=== PATIENT | female | born 1935 | race Caucasian/White ===

== ENCOUNTER 2016-08-10 10:49 | Outpatient (RCR) | payer MEDICARE, OTHER ==
[~2016-08-10 10:49] MED LIST: KEFL500C7 PO; LORT5TAB PO; NIAS1TAB PO; PARO-39 PO; SILV-4 TOP; SYNT75TA PO
--- NOTE | 2016-09-07 09:33 | RADONC ---
RADIATION ONCOLOGY PROGRESS NOTE DATE: 09/06/2016 Ms. Garcia is presently at a dose of 5580 centigrade to her left chest wall surgical scar and is tolerating treatments quite well at this point with no significant difficulties related to her radiation therapy other than some skin discomfort. REVIEW OF SYSTEMS: The patient's review of systems is positive for some skin tenderness, but is otherwise noncontributory. She denies nausea, vomiting, fevers, chills, night sweats, diplopia, headaches, anxiety or depression, anorexia, weight loss, visual disturbances, chest pain, urinary or bowel difficulties, bone pain, or neurological problems. PHYSICAL EXAMINATION: On physical exa, the patient's skin is in generally good condition with brisk erythema and tanning, but no evidence of moist desquamation. The remainder of her physical exam remains unchanged. Ms. Garcia is tolerating treatments quite well and radiation will continue as scheduled.
== END 2016-09-07 ==
LOC: M ONCR 10:49
PROVIDERS: ATTEND Radiology Radiation Oncology
DX: C50.112 Malignant neoplasm of central portion of left female breast (principal)

== ENCOUNTER 2016-09-08 11:00 | Outpatient (RCR) | payer MEDICARE, OTHER ==
--- NOTE | 2016-09-08 15:33 | RADONC ---
RADIATION ONCOLOGY TREATMENT SUMMARY: DATE: 09/08/2016 CHART NO.: [id number] DIAGNOSIS: Right breast cancer. STAGE: III B, T4N1M0 DIAGNOSIS: Left breast cancer. STAGE: II B, T2N1M0 ECOG PERFORMANCE STATUS: 1 Ms. Garcia is a very pleasant 80-year-old white female with the diagnosis of a stage III B, T2N1M0 right-sided breast carcinoma and a stage IIB, T2N1M0 left-sided breast carcinoma who presented to us status post left simple mastectomy and sentinel lymph node sampling as well as right modified radical mastectomy and axillary dissection for consideration of postoperative radiation therapy to her left chest wall in order to increase the likelihood of achieving local control We treated the patient to her left chest wall for a total dose of 5400 cGy delivered in 28 fractions of 180 cGy each over 55 elapsed days from 07/08/2016 through 09/01/2016. The patient's left chest wall was treated on a linear accelerator by medial and lateral tangential godinez utilizing a 6 MV photon beam via 3D conformal technique. One-half centimeter tissue equivalent bolus was placed over the field. Following completion of 540 cGy to the entire left chest wall, the scar site was boosted for an additional 900 cGy delivered in five fractions of 180 cGy each from 09/02/2016 through 09/08/2016. The scar site was boosted on a liner accelerator utilizing a 9 MEV electron beam prescribed to the 90% isodose line via and en face technique. This brought the primary scar area to a total of 5940 cGy delivered in 33 fractions over 62 elapsed days from 07/08/2016 through 09/08/2016. Mrs. Garcia tolerated her treatments quite well and was able to complete radiation as prescribed without interruption. The patient is scheduled to see me again in 1 month for further followup. She will also continue to be followed by her other physicians in the meantime. cc: *Aj Solorio MD
== END 2016-10-05 ==
LOC: M ONCR 11:00
PROVIDERS: ATTEND Radiology Radiation Oncology
DX: C50.111 Malignant neoplasm of central portion of right female breast (principal); C50.112 Malignant neoplasm of central portion of left female breast

== ENCOUNTER → 2016-09-21 | Outpatient (REF) | payer MEDICARE, OTHER | END | disposition home or self-care (01) | LOC: M LAB REF 16:18 | PROVIDERS: ATTEND Internal Medicine Medical Oncology | DX: C50.919 Malignant neoplasm of unspecified site of unspecified female breast (principal); Z92.3 Personal history of irradiation; Z79.811 Long term (current) use of aromatase inhibitors; N95.0 Postmenopausal bleeding; M85.80 Other specified disorders of bone density and structure, unspecified site ==

== ENCOUNTER → 2016-10-13 | Outpatient (CLI) | payer MEDICARE, OTHER ==
--- NOTE | 2016-10-14 11:23 | RADONC ---
RADIATION ONCOLOGY FOLLOWUP NOTE DATE: 10/13/2016 CHART NUMBER: [id number]. DIAGNOSIS: Right breast cancer. STAGE: IIIB, T4N1M0. DIAGNOSIS: Left breast cancer. STAGE: IIB, T2N1M0. ECOG PERFORMANCE STATUS: 0 FOLLOWUP NOTE: Ms. Garcia is a very pleasant 80-year-old white female with the diagnosis of a stage IIIB, T2N1M0 right-sided breast carcinoma and a stage IIB, T2N1M0 left sided breast carcinoma who is presenting to us today for routine followup visit 1 month post completion of external beam radiation therapy to her left chest wall. The patient presents today reporting that she is doing quite well with no complaints at this time related to her radiation therapy or disease. She has no chest wall or bone pain. REVIEW OF SYSTEMS: The patient's review of systems is noncontributory. She denies nausea, vomiting, fevers, chills, night sweats, diplopia, headaches, anxiety or depression, anorexia, weight loss, visual disturbances, chest pain, urinary or bowel difficulties, bone pain, or neurological problems. PHYSICAL EXAMINATION: The patient is a well-developed, well-nourished white female in no acute distress. HEENT exam is normocephalic, atraumatic. Extraocular movements are intact. There is no palpable cervical, supraclavicular, infraclavicular, axillary, or inguinal lymphadenopathy present. Lungs are clear to auscultation and percussion. Heart has a regular rate and rhythm. Abdomen is benign with no hepatosplenomegaly, masses, or tenderness. Chest wall examination reveals bilateral mastectomy scars present. There is no evidence of nodularity, ulceration, residual or recurrent disease. There is some radiation tanning present over her left chest wall, but overall the skin is in good condition with no evidence of moist or dry desquamation. Skeletal examination reveals no tenderness to pressure or percussion of the bony skeleton. Extremities reveal no clubbing, cyanosis, or edema. Neurologic exam is grossly intact, as is the remainder of the physical examination. ASSESSMENT: The patient is clinically stable at this time. At the patient's request, she has requested not to be followed in our office but will be followed by her medical oncologist, Dr. Blandon. cc: Stacey Blandon MD *MARÍA Robertson
== END ==
LOC: M ONCR 09:15
PROVIDERS: ATTEND Radiology Radiation Oncology
DX: C50.112 Malignant neoplasm of central portion of left female breast (principal); C50.111 Malignant neoplasm of central portion of right female breast

== ENCOUNTER → 2017-07-13 | Outpatient (CLI) | payer MEDICARE, OTHER ==
[~2017-07-13] MED LIST changes: +KEFL500C17 PO; -KEFL500C7 PO; -PARO-39 PO; +PARO20TA4 PO
--- NOTE | 2017-07-15 09:20 | DEXA ---
AP SPINE L1 - L4 1.149 -0.4 1.5 LT FEMUR TOTAL 0.731 -2.2 -0.2 RT FEMUR TOTAL 0.759 -2.0 0.0 TOTAL BODY TOTAL OTHER COMMENTS: Normal bone densitometry of the spine. There is low bone density of the left hip. There is low bone density of the right hip. There is degenerative change in the spine which may artificially elevate the BMD. The increased density of the spine does represent a significant change since 07/2016. The increased density of the left hip does represent a significant change since 07/19/2016. The increased density of the right hip does represent a significant change since 07/19/2016. The density of the spine is increased 3.0% since the initial exam on 03/24/2001. The spine density has increased 4.1% since the most recent exam on 07/19/2016. The density of the left hip has decreased 14.2% since the initial exam on 2000. The density of the left hip has increased 2.4% since the most recent exam on 07/2016. The density of the right hip has decreased 12.6% since the initial exam on 03/24. The density of the right hip has increased 5.0% since the most recent exam on . FOLLOW-UP: Recommendation for the next bone density exam: 1 year. SHRAVAN
== END ==
LOC: M WHC 10:28
PROVIDERS: ATTEND Nurse Practitioner Family
DX: M85.9 Disorder of bone density and structure, unspecified (principal); Z79.811 Long term (current) use of aromatase inhibitors

== ENCOUNTER → 2017-09-27 | Outpatient (CLI) | payer MEDICARE, OTHER ==
[2017-09-27 14:27] LABS: TOTAL 25(OH) VITAMIN D 32.9 NG/ML (30.0-100.0)
[2017-09-27 14:33] LABS: BASO # 0.1 10^3/uL (0.0-0.2); BASO % 1.4 % (0.0-1.0); EOS # 0.3 10^3/uL (0.0-0.50); EOS % 4.4 % (0.0-3.0); HEMATOCRIT 43.2 % (36.0-47.0); IMMATURE GRANULOCYTE % 0.3 % (0-3.0); LYMPH % 33.8 % (24.0-44.0); MEAN CORPUSCULAR HEMOGLOBIN 29.2 pg (27.0-33.0); MEAN CORPUSCULAR HGB CONC 32.4 g/dl (32.0-36.5); MONO # 0.5 10^3/uL (0.0-0.8); MONO % 9.1 % (0.0-5.0); PLATELET COUNT, AUTOMATED 257 10^3/uL (150-450); RED CELL DISTRIBUTION WIDTH 12.3 % (11.5-14.5); WHITE BLOOD COUNT 5.9 10^3/uL (4.0-10.0)
[2017-09-27 14:52] LABS: ALBUMIN 3.8 GM/DL (3.2-5.2); ALBUMIN/GLOBULIN RATIO 1.12 (1.00-1.93); ALKALINE PHOSPHATASE 63 U/L (45-117); ALT/SGPT 58 U/L (12-78); ANION GAP 5 MEQ/L (8-16); AST/SGOT 49 U/L (7-37); BILIRUBIN,TOTAL 0.7 MG/DL (0.2-1.0); BLOOD UREA NITROGEN 16 MG/DL (7-18); CALCIUM LEVEL 9.2 MG/DL (8.8-10.2); CARBON DIOXIDE LEVEL 29 MEQ/L (21-32); CHLORIDE LEVEL 107 MEQ/L (98-107); CREATININE FOR GFR 0.92 MG/DL (0.55-1.30); FREE T3 3.1 PG/ML (2.2-4.0); FREE T4 1.05 NG/DL (0.76-1.46); GLOMERULAR FILTRATION RATE > 60.0 (>32); GLUCOSE, FASTING 111 MG/DL (70-100); POTASSIUM SERUM 4.6 MEQ/L (3.5-5.1); SODIUM LEVEL 141 MEQ/L (136-145); THYROID STIMULATING HORMONE 0.488 uIU/ML (0.358-3.740); TOTAL PROTEIN 7.2 GM/DL (6.4-8.2)
== END ==
LOC: M SMT 10:43
DX: Z79.899 Other long term (current) drug therapy (principal); E03.9 Hypothyroidism, unspecified
CPT/HCPCS: 84443

== ENCOUNTER → 2018-10-16 | Outpatient (CLI) | payer MEDICARE, OTHER ==
[~2018-10-16] MED LIST changes: +FOSA70TA PO; +LETR2.5T2 PO; -NIAS1TAB PO; +NIAS500T23 PO
[2018-10-16 13:49] LABS: ALBUMIN 3.9 GM/DL (3.2-5.2); ALT/SGPT 63 U/L (12-78); BILIRUBIN,TOTAL 0.9 MG/DL (0.2-1.0); BLOOD UREA NITROGEN 11 MG/DL (7-18); CALCIUM LEVEL 9.4 MG/DL (8.8-10.2); CARBON DIOXIDE LEVEL 30 MEQ/L (21-32); CHLORIDE LEVEL 105 MEQ/L (98-107); CREATININE FOR GFR 0.91 MG/DL (0.55-1.30); FREE T3 2.7 PG/ML (2.2-4.0); FREE T4 1.14 NG/DL (0.76-1.46); GLOMERULAR FILTRATION RATE > 60.0 (>32); GLUCOSE, FASTING 107 MG/DL (70-100); POTASSIUM SERUM 4.9 MEQ/L (3.5-5.1); SODIUM LEVEL 140 MEQ/L (136-145); TOTAL 25(OH) VITAMIN D 28.6 NG/ML (30.0-100.0); TOTAL PROTEIN 7.2 GM/DL (6.4-8.2)
== END ==
LOC: M SMT 10:11
PROVIDERS: ATTEND Family Medicine
DX: Z51.81 Encounter for therapeutic drug level monitoring (principal); Z79.899 Other long term (current) drug therapy; M85.80 Other specified disorders of bone density and structure, unspecified site; E03.9 Hypothyroidism, unspecified

== ENCOUNTER → 2019-09-18 | Outpatient (CLI) | payer MEDICARE, OTHER ==
[~2019-09-18] MED LIST changes: +ALEN35TA6 PO
== END ==
LOC: M WHC 11:22
PROVIDERS: ATTEND Internal Medicine Hematology & Oncology
DX: M81.0 Age-related osteoporosis without current pathological fracture (principal)

== ENCOUNTER → 2020-04-28 | Outpatient (CLI) | payer MEDICARE, OTHER ==
[~2020-04-28] MED LIST changes: +ALEN35TA54 PO; -ALEN35TA6 PO
--- NOTE | 2020-05-08 11:49 | REP ---
LEFT HIP SERIES HISTORY: Left hip pain. TECHNIQUE: Two views of the left hip are performed. FINDINGS: There is no acute fracture or dislocation. There are moderate arthritic changes at the left hip joint with moderate joint space narrowing, subchondral sclerosis, and spurring. There is also mild subchondral cystic change on both sides of the joint. IMPRESSION: Moderate arthritic changes left hip joint. MTDD
== END ==
LOC: M LAB 10:06 → M RAD 10:06
PROVIDERS: ATTEND Internal Medicine Medical Oncology
DX: M16.12 Unilateral primary osteoarthritis, left hip (principal)

== ENCOUNTER → 2021-03-13 | Outpatient (CLI) | payer MEDICARE, OTHER ==
[~2021-03-13] MED LIST changes: -ALEN35TA54 PO; +ALEN35TA56 PO; +CALC-190 PO
== END ==
LOC: M RAD 08:38
PROVIDERS: ATTEND Internal Medicine Medical Oncology
DX: R94.5 Abnormal results of liver function studies (principal)

== ENCOUNTER → 2021-09-18 | Outpatient (CLI) | payer MEDICARE, OTHER ==
[~2021-09-18] MED LIST changes: -CALC-190 PO
== END ==
LOC: M WHC 12:49
PROVIDERS: ATTEND Internal Medicine Medical Oncology
DX: M85.851 Other specified disorders of bone density and structure, right thigh (principal); M85.852 Other specified disorders of bone density and structure, left thigh

== ENCOUNTER → 2022-05-14 | Outpatient (CLI) | payer MEDICARE, OTHER ==
[~2022-05-14] MED LIST changes: +ALEN70TA87 PO; +CALC-190 PO; -FOSA70TA PO
[2022-05-14 13:38] LABS: BASO % 0.7 % (0.0-1.0); EOS # 0.1 10^3/uL (0.0-0.5); EOS % 2.2 % (0.0-3.0); HEMATOCRIT 40.9 % (36.0-47.0); HEMOGLOBIN 12.9 g/dl (12.0-15.5); LYMPH % 36.6 % (24.0-44.0); MEAN CORPUSCULAR HEMOGLOBIN 29.3 pg (27.0-33.0); MEAN CORPUSCULAR HGB CONC 31.5 g/dl (32.0-36.5); MONO # 0.7 10^3/uL (0.0-0.8); NEUTROPHILS # 2.6 10^3/uL (1.5-8.5); NEUTROPHILS % 47.3 % (36.0-66.0); PLATELET COUNT, AUTOMATED 272 10^3/uL (150-450); WHITE BLOOD COUNT 5.6 10^3/uL (4.0-10.0)
[2022-05-14 14:45] LABS: ALBUMIN 3.7 GM/DL (3.2-5.2); BILIRUBIN,TOTAL 0.9 MG/DL (0.2-1.0); CALCIUM LEVEL 9.8 MG/DL (8.8-10.2); CHOLESTEROL RISK RATIO 5.868 (<5); CREATININE FOR GFR 1.01 MG/DL (0.55-1.30); FREE T4 1.05 NG/DL (0.76-1.46); GLOMERULAR FILTRATION RATE 55.6 (>32); POTASSIUM SERUM 4.4 MEQ/L (3.5-5.1); THYROID STIMULATING HORMONE 1.82 uIU/ML (0.358-3.740); TOTAL PROTEIN 6.9 GM/DL (6.4-8.2)
[2022-05-14 17:12] LABS: FREE T3 2.6 PG/ML (2.2-4.0)
== END ==
LOC: M WUC 09:39
PROVIDERS: ATTEND Family Medicine
DX: Z00.00 Encounter for general adult medical examination without abnormal findings (principal); E03.9 Hypothyroidism, unspecified; M85.80 Other specified disorders of bone density and structure, unspecified site

== ENCOUNTER → 2022-11-03 | Outpatient (CLI) | payer MEDICARE, OTHER ==
[2022-11-03 10:03] LABS: ALBUMIN 3.5 G/DL (3.2-5.2); CALCIUM LEVEL 9.4 MG/DL (8.3-10.6); CHOLESTEROL RISK RATIO 3.9 (<5); CREATININE FOR GFR 0.95 MG/DL (0.55-1.30); GLOMERULAR FILTRATION RATE 59.5 (>32); HEMOGLOBIN A1c 5.8 % (4.0-6.0); LDL CHOLESTEROL 70.4 MG/DL (<100); POTASSIUM SERUM 4.8 MMOL/L (3.5-5.1); TOTAL PROTEIN 6.3 G/DL (5.7-8.2)
== END ==
LOC: M WUC 08:20
PROVIDERS: ATTEND Family Medicine
DX: E78.5 Hyperlipidemia, unspecified (principal); R73.01 Impaired fasting glucose

== ENCOUNTER → 2022-12-14 | Outpatient (CLI) | payer MEDICARE, OTHER ==
[2022-12-14 15:40] LABS: BASO % 0.4 % (0.0-1.0); EOS # 0.2 10^3/uL (0.0-0.5); EOS % 2.3 % (0.0-3.0); HEMATOCRIT 44.6 % (36.0-47.0); HEMOGLOBIN 14.1 g/dl (12.0-15.5); LYMPH # 2.4 10^3/uL (1.5-5.0); LYMPH % 32.4 % (24.0-44.0); MEAN CORPUSCULAR HEMOGLOBIN 28.8 pg (27.0-33.0); MEAN CORPUSCULAR HGB CONC 31.6 g/dl (32.0-36.5); MONO # 1.5 10^3/uL (0.0-0.8); MONO % 20.4 % (2.0-8.0); NEUTROPHILS # 3.2 10^3/uL (1.5-8.5); NEUTROPHILS % 44.2 % (36.0-66.0); PLATELET COUNT, AUTOMATED 206 10^3/uL (150-450); WHITE BLOOD COUNT 7.3 10^3/uL (4.0-10.0)
[2022-12-14 15:42] LABS: ALBUMIN 3.5 G/DL (3.2-5.2); BILIRUBIN,TOTAL 0.7 MG/DL (0.3-1.2); CALCIUM LEVEL 9.5 MG/DL (8.3-10.6); CREATININE FOR GFR 1.15 MG/DL (0.55-1.30); GLOMERULAR FILTRATION RATE 47.7 (>32); POTASSIUM SERUM 3.9 MMOL/L (3.5-5.1); TOTAL PROTEIN 6.9 G/DL (5.7-8.2)
== END ==
LOC: M WUC 12:10
PROVIDERS: ATTEND Family Medicine
DX: R05.9 Cough, unspecified (principal)

== ENCOUNTER → 2023-11-10 | Outpatient (CLI) | payer MEDICARE, OTHER ==
[2023-11-10 10:46] LABS: BASO # 0.1 10^3/uL (0.0-0.2); BASO % 0.8 % (0.0-1.0); EOS # 0.1 10^3/uL (0.0-0.5); EOS % 1.6 % (0.0-3.0); HEMOGLOBIN 13.1 g/dl (12.0-15.5); LYMPH # 2.1 10^3/uL (1.5-5.0); LYMPH % 33.2 % (24.0-44.0); MEAN CORPUSCULAR HEMOGLOBIN 29.3 pg (27.0-33.0); MEAN CORPUSCULAR VOLUME 91.7 fl (80.0-96.0); NEUTROPHILS % 48.1 % (36.0-66.0); PLATELET COUNT, AUTOMATED 277 10^3/uL (150-450); RED BLOOD COUNT 4.47 10^6/uL (4.00-5.40); WHITE BLOOD COUNT 6.3 10^3/uL (4.0-10.0)
[2023-11-10 11:10] LABS: ALBUMIN 3.6 G/DL (3.2-5.2); BILIRUBIN,TOTAL 0.9 MG/DL (0.3-1.2); CHOLESTEROL RISK RATIO 3.93 (<5); CREATININE FOR GFR 1.03 MG/DL (0.55-1.30); GLOMERULAR FILTRATION RATE 54.1 (>32); HDL CHOLESTEROL 35.1 MG/DL (>40); LDL CHOLESTEROL 77.5 MG/DL (<100); NON-HDL-C 102.9 MG/DL; POTASSIUM SERUM 4.3 MMOL/L (3.5-5.1); TOTAL PROTEIN 6.7 G/DL (5.7-8.2)
[2023-11-10 11:13] LABS: FREE T3 3.3 PG/ML (2.3-4.2); TOTAL 25(OH) VITAMIN D 33.8 NG/ML (20.0-100.0)
[2023-11-10 11:14] LABS: THYROID STIMULATING HORMONE 2.344 uIU/ML (0.55-4.78)
[2023-11-10 11:16] LABS: FREE T4 1.06 NG/DL (0.89-1.76)
== END ==
LOC: M WUC 08:24
PROVIDERS: ATTEND Family Medicine
DX: M85.80 Other specified disorders of bone density and structure, unspecified site (principal); E78.5 Hyperlipidemia, unspecified; E03.9 Hypothyroidism, unspecified

== ENCOUNTER → 2024-07-16 | Outpatient (CLI) | payer MEDICARE, OTHER ==
[2024-07-16 17:32] LABS: BASO % 0.5 % (0.0-1.0); EOS # 0.1 10^3/uL (0.0-0.5); HEMATOCRIT 40.7 % (36.0-47.0); HEMOGLOBIN 12.9 g/dl (12.0-15.5); LYMPH # 2.4 10^3/uL (1.5-5.0); LYMPH % 30.5 % (24.0-44.0); MEAN CORPUSCULAR HGB CONC 31.7 g/dl (32.0-36.5); MEAN CORPUSCULAR VOLUME 94.7 fl (80.0-96.0); MONO # 0.8 10^3/uL (0.0-0.8); MONO % 10.5 % (2.0-8.0); NEUTROPHILS # 4.5 10^3/uL (1.5-8.5); PLATELET COUNT, AUTOMATED 246 10^3/uL (150-450); WHITE BLOOD COUNT 7.9 10^3/uL (4.0-10.0)
[2024-07-16 17:33] LABS: APPEARANCE, URINE CLEAR (CLEAR); BACTERIA, URINE AUTO NEGATIVE (NEGATIVE); BILIRUBIN, URINE AUTO NEGATIVE (NEGATIVE); BLOOD, URINE BLOOD NEGATIVE (NEGATIVE); COLOR, URINE YELLOW (YELLOW); GLUCOSE, URINE (UA) AUTO NEGATIVE (NEGATIVE); KETONE, URINE AUTO NEGATIVE (NEGATIVE); LEUKOCYTE ESTERASE, URINE AUTO NEGATIVE (NEGATIVE); MUCUS, URINE SMALL (NEGATIVE); NITRITE, URINE AUTO NEGATIVE (NEGATIVE); PROTEIN, URINE AUTO NEGATIVE (NEGATIVE); RBC, URINE AUTO 6 /HPF (0-3); SPECIFIC GRAVITY URINE AUTO 1.021 (1.002-1.035); SQUAMOUS EPITHELIAL CELL UR AU 0 /HPF (0-6); WBC, URINE AUTO 2 /HPF (0-3)
[2024-07-16 17:56] LABS: ALBUMIN 3.7 G/DL (3.2-5.2); ALKALINE PHOSPHATASE 71 U/L (35-104); ALT/SGPT 41 U/L (7.0-40); AST/SGOT 44 U/L (<34); BILIRUBIN,TOTAL 0.8 MG/DL (0.3-1.2); BLOOD UREA NITROGEN 15 MG/DL (9-23); CARBON DIOXIDE LEVEL 29 MMOL/L (20-31); CHLORIDE LEVEL 107 MMOL/L (98-107); CREATININE FOR GFR 0.93 MG/DL (0.55-1.30); GLOMERULAR FILTRATION RATE > 60.0 (>32); GLUCOSE, FASTING 145 MG/DL (74-106); POTASSIUM SERUM 4.1 MMOL/L (3.5-5.1); SODIUM LEVEL 143 MMOL/L (136-145); TOTAL PROTEIN 6.8 G/DL (5.7-8.2)
[2024-07-16 17:58] LABS: FREE T4 1.06 NG/DL (0.89-1.76)
[2024-07-16 17:59] LABS: THYROID STIMULATING HORMONE 2.459 uIU/ML (0.55-4.78)
== END ==
LOC: M WUC 13:21
PROVIDERS: ATTEND Family Medicine
DX: R42 Dizziness and giddiness (principal); E03.9 Hypothyroidism, unspecified

== ENCOUNTER → 2025-05-10 | Outpatient (CLI) | payer MEDICARE, OTHER ==
[2025-05-10 14:16] LABS: BASO # 0.0 10^3/uL (0.0-0.2); BASO % 0.5 % (0.0-1.0); EOS # 0.1 10^3/uL (0.0-0.5); EOS % 2.1 % (0.0-3.0); LYMPH # 1.6 10^3/uL (1.5-5.0); LYMPH % 26.6 % (24.0-44.0); MONO # 1.1 10^3/uL (0.0-0.8); MONO % 18.7 % (2.0-8.0); NEUTROPHILS # 3.0 10^3/uL (1.5-8.5); NEUTROPHILS % 51.4 % (36.0-66.0); PLATELET COUNT, AUTOMATED 305 10^3/uL (150-450)
[2025-05-10 14:47] LABS: ESTIMATED AVERAGE GLUCOSE 120.0 MG/DL (60-110)
[2025-05-10 14:48] LABS: ALT/SGPT 30.0 U/L (7.0-40); AST/SGOT 42.0 U/L (<34); CALCIUM LEVEL 9.5 MG/DL (8.3-10.6); CARBON DIOXIDE LEVEL 27.0 MMOL/L (20-31); CHLORIDE LEVEL 102.0 MMOL/L (98-107); CHOLESTEROL LEVEL 130.0 MG/DL (<200); CHOLESTEROL RISK RATIO 3.54 (<5); CREATININE FOR GFR 0.91 MG/DL (0.55-1.30); GLOMERULAR FILTRATION RATE 61.1 (>32); LDL CHOLESTEROL 75.7 MG/DL (<100); NON-HDL-C 93.3 MG/DL; POTASSIUM SERUM 4.3 MMOL/L (3.5-5.1); SODIUM LEVEL 138.0 MMOL/L (136-145); TRIGLYCERIDES LEVEL 88.0 MG/DL (<150)
[2025-05-10 14:49] LABS: FREE T4 1.2 NG/DL (0.89-1.76)
== END ==
LOC: M WUC 08:48
PROVIDERS: ATTEND Family Medicine
DX: Z00.00 Encounter for general adult medical examination without abnormal findings (principal); E03.9 Hypothyroidism, unspecified; R73.01 Impaired fasting glucose